=== PATIENT | female | born 1965 | race Caucasian/White ===

== ENCOUNTER 2024-05-12 17:11 | Emergency (ER) | payer SELFPAY ==
[~2024-05-12] VITALS: Ht 162.6 cm; Wt 80.0 kg
[2024-05-12 17:15] VITALS: O2SAT 99
[2024-05-12 17:29] VITALS: BP 143/74; PULSE 100; RESP 18; TEMP 36.5; O2SAT 99
[2024-05-12] MEDS: MECLIZINE 25MG TABLET PO ONE (18:00)
[2024-05-12 18:32] LABS: BASOPHILS % 0.4 % (0.0-2.0); EOSINOPHILS % 1.2 % (0.0-5.0); HEMATOCRIT. 44.8 % (36.0-48.0); LYMPHOCYTES % 11.8 % (20.0-50.0); MEAN CORPUSCULAR HEMOGLOBIN 31.6 pg (28.0-32.0); MEAN CORPUSCULAR HGB CONC 33.4 g/dL (31.0-37.0); MEAN CORPUSCULAR VOLUME 94.7 fL (81.0-99.0); MEAN PLATELET VOLUME 8.7 fl (7.4-10.4); MONOCYTES % 3.2 % (2.0-8.0); NEUTROPHILS % 83.4 % (40.0-76.0); PLATELET 223 x1000/uL (130-400); RED BLOOD CELL COUNT 4.73 mill/uL (4.2-5.4); RED CELL DISTRIBUTION WIDTH 12.6 % (11.6-14.6); WHITE BLOOD COUNT 8.6 x1000/uL (4.5-11.0)
[2024-05-12 18:34] LABS: CHLORIDE 96 mEq/L (98-107); POTASSIUM 4.3 mEq/L (3.5-5.1); SODIUM 136 mEq/L (136-145)
[2024-05-12 18:36] LABS: CALCIUM 9.3 mg/dL (8.7-10.4); CARBON DIOXIDE 31 mEq/L (21-32)
[2024-05-12 18:41] LABS: CREATININE 0.8 mg/dL (0.6-1.0); GLUCOSE 372 mg/dL (70-105); UREA NITROGEN BLOOD 14 mg/dL (9-23)
[2024-05-12 18:43] LABS: ALANINE AMINOTRANSFERASE 18 IU/L (10-49); ALBUMIN 4.2 g/dL (3.2-4.8); ASPARTATE AMINOTRANSFERASE 20 IU/L (<34); BILIRUBIN DIRECT 0.1 mg/dL (<=3.0); BILIRUBIN TOTAL 0.7 mg/dL (0.1-1.0)
[2024-05-12 19:53] LABS: TROPONIN I HIGH SENSITIVITY 4 ng/L (3.0-34)
[2024-05-12] MEDS ORDERED: MECL-299 MT (22:33)
[2024-05-12] MEDS ORDERED: IOHEXOL-350 100 ML BOTTLE ONE (22:47)
== END 2024-05-12 23:08 | disposition home or self-care (01) ==
LOC: ER 17:11
DX: H81.10 Benign paroxysmal vertigo, unspecified ear (principal); E11.9 Type 2 diabetes mellitus without complications; Z98.890 Other specified postprocedural states; Z79.899 Other long term (current) drug therapy
CPT/HCPCS: 99285; 70496; 71045; 80076; 80048; 83880; 83690; 83735; 85025; 84484; 36415; 70498; 93005; Q9967; J8597